=== PATIENT | female | born 1970 | race Caucasian/White ===

== ENCOUNTER 2019-06-21 01:45 | Inpatient (IN) | payer OTHER ==
--- NOTE | 2019-06-21 02:23 | PDOC ---
Attending Attestation - Resident Resident Name: Ann Garcias - ED Attending Attestation I have performed the following: I have examined & evaluated the patient, The case was reviewed & discussed with the resident, I agree w/resident's findings & plan - HPI HPI: 06/21/19 02:59 48 yo female with diffuse abdominal pain and diarrhea since returning from [place], symptoms worsening despite treatment with Fagyl - Physicial Exam PE: 06/21/19 03:00 agree with residents exam - Medical Decision Making 06/21/19 06:08 48-year-old female with abdominal cramping vomiting and diarrhea despite Flagyl after returning from [place] CT scan consistent with diarrheal illness Lipase is greater than twice normal Will admit for IV hydration and further evaluation to medical service
--- NOTE | 2019-06-21 02:32 | PDOC ---
History of Present Illness - General Chief Complaint: Pain Stated Complaint: ABD PAIN Time Seen by Provider: 06/21/19 02:22 Past History - Past Medical History Allergies/Adverse Reactions: Allergies Allergy/AdvReac Type Severity Reaction Status Date / Time No Known Allergies Allergy Verified 06/21/19 02:05 COPD: No GI Disorders: Yes - Suicide/Smoking/Psychosocial Hx Smoking History: Never smoked *Physical Exam - Vital Signs Last Vital Signs Temp Pulse Resp BP Pulse Ox 98.3 F 68 18 117/79 98 06/21/19 02:01 06/21/19 02:01 06/21/19 02:01 06/21/19 02:01 06/21/19 02:01 ED Treatment Course - LABORATORY CBC & Chemistry Diagram: 06/21/19 03:20 06/21/19 03:20 Medical Decision Making - Medical Decision Making 48yo F with PMH of gastritis, constipation presenting with abdominal pain. Patient recently returned from [place] on Tuesday. While she was there, she developed significant diarrhea for which she was treated with flagyl by a family member who is a physician. Patient developed abdominal pain thereafter and was admitted to the hospital. An imaging study and blood work showed that the patient had a "paralyzed intestine" for which she was medically managed and cleared for travel back to the [facility]. Patient presents to the ER today with pain that has worsened over the past three days that is similar to the prior abdominal pain but more severe, now rated 10/10 and described as "contractions." She reports a normal formed brown bowel movement today without blood. Endorses nausea, and one episode of NBNB vomiting prior to arrival. Had an endoscopy about two months ago which was "normal." Never had a colonoscopy. Endorses subjective fever and chills. LMP was 05/28/19. Denies history of surgeries. No chest pain or shortness of breath. PCP: Dr. Alexis Aguilar GI: Dr. Webster ROS: Constitutional: +subjective fever, +chills HEENT: no throat pain, no dysphagia Cardiovascular: no chest pain, no palpitations Respiratory: no cough, no shortness of breath Gastrointestinal: +abdominal pain, +nausea Genitourinary: no dysuria, no hematuria Musculoskeletal: no myalgia, no arthralgia Skin: no rash, no itching Neurologic: no headache, no weakness PE: General: Awake, alert, and fully oriented, in no acute distress Head: No signs of trauma Eyes: EOMI, sclera anicteric ENT: Moist mucus membranes Neck: Normal ROM, supple Lungs: Lungs clear, Normal breath sounds Cardio: Regular rhythm, S1 and S2 present Abdomen: Diffuse tenderness to palpation, most focal to LLQ. Soft, nondistended. +rebound, no guarding, no masses Extremities: Normal range of motion, Distal pulses present SKIN: Warm, Dry, normal turgor Neurologic: Cranial nerves II through XII grossly intact. Normal speech ED Courses/MDM: DDX including but not limited to diverticulitis, colitis, appendicitis, pyelonephritis, UTI, , ACS Labs, EKG, CTAP Fluids, Pepcid, Zofran, Morphine 06/21/19 02:32 EKG: rate 61, QTc 459, NSR CBC WBC 8.0 K/mm3 (4.0-10.0) 06/21/19 03:20 RBC 3.82 M/mm3 (3.60-5.2) 06/21/19 03:20 Hgb 12.0 GM/dL (10.7-15.3) 06/21/19 03:20 Hct 35.6 % (32.4-45.2) 06/21/19 03:20 MCV 93.0 fl (80-96) 06/21/19 03:20 MCH 31.4 pg (25.7-33.7) 06/21/19 03:20 MCHC 33.8 g/dl (32.0-36.0) 06/21/19 03:20 RDW 14.0 % (11.6-15.6) 06/21/19 03:20 Plt Count 349 K/MM3 (134-434) 06/21/19 03:20 MPV 7.3 fl (7.5-11.1) L 06/21/19 03:20 Absolute Neuts (auto) 6.1 K/mm3 (1.5-8.0) 06/21/19 03:20 Neutrophils % 76.1 % (42.8-82.8) 06/21/19 03:20 Lymphocytes % 13.6 % (8-40) 06/21/19 03:20 Monocytes % 6.5 % (3.8-10.2) 06/21/19 03:20 Eosinophils % 3.4 % (0-4.5) 06/21/19 03:20 Basophils % 0.4 % (0-2.0) 06/21/19 03:20 Nucleated RBC % 0 % (0-0) 06/21/19 03:20 No leukocytosis Patient no longer nauseous Abd pain improved, now rated 01/2106/21/19 04:25 CMP Sodium 140 mmol/L (136-145) 06/21/19 03:20 Potassium 4.5 mmol/L (3.5-5.1) 06/21/19 03:20 Chloride 105 mmol/L (98-107) 06/21/19 03:20 Carbon Dioxide 30 mmol/L (21-32) 06/21/19 03:20 Anion Gap 5 MMOL/L (8-16) L 06/21/19 03:20 BUN 10.7 mg/dL (7-18) 06/21/19 03:20 Creatinine 1.0 mg/dL (0.55-1.3) 06/21/19 03:20 Est GFR (CKD-EPI)AfAm 76.61 06/21/19 03:20 Est GFR (CKD-EPI)NonAf 66.10 06/21/19 03:20 Random Glucose 117 mg/dL (74-106) H 06/21/19 03:20 Lactic Acid 0.8 mmol/L (0.4-2.0) 06/21/19 03:20 Calcium 8.8 mg/dL (8.5-10.1) 06/21/19 03:20 Total Bilirubin 0.3 mg/dL (0.2-1) 06/21/19 03:20 AST 19 U/L (15-37) 06/21/19 03:20 ALT 38 U/L (13-61) 06/21/19 03:20 Alkaline Phosphatase 52 U/L (45-117) 06/21/19 03:20 Troponin I < 0.02 ng/ml (0.00-0.05) 06/21/19 03:20 Total Protein 6.8 g/dl (6.4-8.2) 06/21/19 03:20 Albumin 3.5 g/dl (3.4-5.0) 06/21/19 03:20 Lipase 847 U/L (73-393) H 06/21/19 03:20 Electrolytes unremarkable Normal BUN and Cr Normal lactate Tpn negative Lipase elevated UA negative for infection test negative Pending CTAP report 06/21/19 05:21 CT via Imaging console attendant: "FINDINGS: Lung bases are clear. The visualized cardiac chambers are normal size and configuration. A tiny left hepatic lobe cyst is noted . Normal gallbladder, pancreas, spleen, adrenal glands and kidneys. The stomach and small bowel are normal. Scattered liquid stool is noted without colonic wall thickening which could indicate a diarrheal illness. There is no aortic aneurysm. There is no significant retroperitoneal lymphadenopathy. The appendix is not mobile. The uterus and adnexal structures are notable only for a 1.4 cm left ovarian cyst. Urinary bladder is unremarkable. There is minimal pelvic free fluid. No discrete pelvic lymphadenopathy is identified. IMPRESSION: 1.4 cm left ovarian cyst and minimal pelvic free fluid Possible diarrheal illness without colonic wall thickening." Pain is worsening, now 5/ Plan for admission for abdominal pain/vomiting/diarrhea and elevated lipase 06/21/19 06:15 Discussed case with REC[facility] OF [facility]ED[facility] Venessa Lee who accepted patient for admission under Dr. Pelletier 06/21/19 06:45 *DC/Admit/Observation/Transfer Diagnosis at time of Disposition: Elevated lipase, Abdominal pain, vomiting, and diarrhea - Discharge Dispostion Condition at time of disposition: Guarded Decision to Admit order: Yes - Referrals Referrals: Alexis Aguilar [Primary Care Provider] - - Patient Instructions - Post Discharge Activity
[2019-06-21] MEDS ORDERED: FAMOTIDINE 20 MG/50 ML IVPB 20 MG/50 ML MG IVPB ONE ×4 (03:02→22:08)
[2019-06-21] MEDS ORDERED: SODIUM CHLORIDE 1,000 ML IV STA (03:02)
[2019-06-21] MEDS ORDERED: morphine CARPU-JECT 4 MG/1 ML DISP.SYRIN IVPUSH ONE (03:02)
[2019-06-21] MEDS ORDERED: ONDANSETRON 4 MG/2 ML VIAL IVPUSH ONE (03:02)
[2019-06-21] MEDS ORDERED: morphine SULFATE 4 MG/ML VIAL ONE (03:24)
[2019-06-21] MEDS ORDERED: ONDANSETRON 4 MG/2 ML VIAL ONE (03:25)
[2019-06-21 03:43] LABS: BASO % 0.4 % (0-2.0); EOS % 3.4 % (0-4.5); HEMATOCRIT 35.6 % (32.4-45.2); LYMPH % 13.6 % (8-40); MCH 31.4 pg (25.7-33.7); MCHC 33.8 g/dl (32.0-36.0); MEAN PLT VOLUME 7.3 fl (7.5-11.1); MONO % 6.5 % (3.8-10.2); NEUT % 76.1 % (42.8-82.8); PLATELET COUNT 349 K/MM3 (134-434); RBC 3.82 M/mm3 (3.60-5.2)
[2019-06-21 04:20] LABS: ALBUMIN 3.5 g/dl (3.4-5.0); BILIRUBIN,TOTAL 0.3 mg/dL (0.2-1); BLOOD UREA NITROGEN 10.7 mg/dL (7-18); CALCIUM 8.8 mg/dL (8.5-10.1); POTASSIUM 4.5 mmol/L (3.5-5.1); TOT PROT 6.8 g/dl (6.4-8.2)
[2019-06-21 04:39] LABS: URINE APPEARANCE CLEAR; URINE BILIRUBIN NEGATIVE (NEGATIVE); URINE COLOR YELLOW; URINE GLUCOSE (UA) NEGATIVE (NEGATIVE); URINE KETONE TRACE (NEGATIVE); URINE LEUK ESTERASE NEGATIVE (NEGATIVE); URINE NITRITE NEGATIVE (NEGATIVE); URINE PROTEIN NEGATIVE (NEGATIVE); URINE UROBILINOGEN 0.2 mg/dL (0.2-1.0)
[2019-06-21] MEDS ORDERED: ONDANSETRON 4 MG/2 ML VIAL IVPUSH PRN (06:50)
[2019-06-21] MEDS ORDERED: DEXTROSE 5%-0.45% SALINE 1,000 ML IV SCH (07:00)
[2019-06-21] MEDS ORDERED: morphine SULFATE 4 MG/ML VIAL IVPUSH PRN (07:03)
[2019-06-21] MEDS ORDERED: SODIUM CHLORIDE 500 ML IV STA (07:19)
--- NOTE | 2019-06-21 07:36 | HP ---
Admitting History and Physical - Primary Care Physician PCP: Alexis Aguilar - Admission Chief Complaint: abdominal pain, nausea/vomiting/diarrhea History of Present Illness: Patient is a 48 year old female with a significant past medical history of gastritis and chronic constipation. She presents to the ED with diffused abdominal pain. Patient was in [place] last week, visiting family. While there, patient states she ate many different types of food. She developed abdominal pain while in [place] and went to the hospital. While hospitalized, she was treated with an IV antibiotic and told that her appendix may be the culprit and that she possibly had a "paralyzed intestine". She did not have surgery and subsequently improved and was discharged and cleared for travel back to the . She was discharged, but her abdominal pain quickly returned. She was then prescribed Flagenese (metronidazol), simethecone and famotidine by a family member that is a physician. She took these medications without improvement. She presents to our ED with epigastric pain as well as left upper and lower quadrant abdominal pain that she describes as "crampy" associated with nausea and diarrhea. She reports two episodes of diarrhea yesterday without blood. She endorses nausea, and one episode of NBNB vomiting prior to arrival. States she had an endoscopy about two months ago which was "normal." Never had a colonoscopy. Endorses subjective fever and chills. She denies chest pain. Patient had an hypotensive episode of 76/48 in the ED. She denies any dizziness or any other malaise. She is ordered for a bolus of 500cc of normal saline. Her repeat BP prior to bolus was more stable at 92/61. History Source: Patient, Family Member Limitations to Obtaining History: No Limitations - Past Medical History ...: No - Past Surgical History Past Surgical History: Yes: None - Smoking History Smoking history: Never smoked - Alcohol/Substance Use Hx Alcohol Use: No History of Substance Use: reports: None - Social History Usual Living Arrangement: Yes: With Spouse History of Recent Travel: Yes ([place], returned on Tuesday) Home Medications - Allergies Allergies/Adverse Reactions: Allergies Allergy/AdvReac Type Severity Reaction Status Date / Time No Known Allergies Allergy Verified 06/21/19 02:05 Review of Systems - Review of Systems Constitutional: reports: Chills, Lethargy, Loss of Appetite, Malaise, Weakness Eyes: reports: No Symptoms HENT: reports: No Symptoms Neck: reports: No Symptoms Cardiovascular: reports: No Symptoms Respiratory: reports: No Symptoms Gastrointestinal: reports: Abdominal Pain (left upper and lowe quadrants), Bloating, Diarrhea, Dysphagia, Indigestion, Nausea, Vomiting Genitourinary: reports: No Symptoms Breasts: reports: No Symptoms Reported Musculoskeletal: reports: No Symptoms Integumentary: reports: No Symptoms Neurological: reports: No Symptoms Endocrine: reports: No Symptoms Hematology/Lymphatic: reports: No Symptoms Psychiatric: reports: No Symptoms Pain Intensity: 5 Physical Examination Vital Signs: Vital Signs Temperature 98.3 F 06/21/19 02:01 Pulse Rate 56 L 06/21/19 07:29 Respiratory Rate 17 06/21/19 07:29 Blood Pressure 92/71 06/21/19 07:29 O2 Sat by Pulse Oximetry (%) 99 06/21/19 07:29 Constitutional: Yes: Calm Eyes: Yes: WNL HENT: Yes: WNL, Atraumatic Neck: Yes: WNL, Supple, Trachea Midline Cardiovascular: Yes: Regular Rate and Rhythm Gastrointestinal: Yes: Soft, Hypoactive Bowel Sounds, Tenderness, Vomiting Musculoskeletal: Yes: WNL Extremities: Yes: WNL Edema: No Integumentary: Yes: WNL Wound/Incision: Yes: Clean/Dry Neurological: Yes: WNL, Alert, Oriented ...Motor Strength: WNL Psychiatric: Yes: WNL, Alert, Oriented Labs: CBC, BMP 06/21/19 03:20 06/21/19 03:20 Problem List - Problems (1) Abdominal pain, vomiting, and diarrhea Assessment/Plan: Abdominal pain. possibly secondary to acute diverticulitis, colitis, appendicitis, pyelonephritis or ACS Awaiting abdominal pelvic CTAP will order - Keep NPO - hydrate with NS. - protonix iv - stool cultures, blood cultures, urine cultures - trend troponins - stool for c diff - anti emetics Code(s): R10.9 - UNSPECIFIED ABDOMINAL PAIN; R11.10 - VOMITING, UNSPECIFIED; R19.7 - DIARRHEA, UNSPECIFIED (2) Elevated lipase Assessment/Plan: lipase elevated at 847 keep npo GI consulted Code(s): R74.8 - ABNORMAL LEVELS OF OTHER SERUM ENZYMES (3) Hypotension Assessment/Plan: bp dropped to 70/40s. IVF fluid bolus ordered. monitor BP q 2-4 until normalizes. continue if aggressive ivf hydration Code(s): I95.9 - HYPOTENSION, UNSPECIFIED (4) Hypotension due to hypovolemia Code(s): I95.89 - OTHER HYPOTENSION; E86.1 - HYPOVOLEMIA (5) Prophylactic measure Assessment/Plan: fen d5 1/2 ns @ 100 cc/hr monitor electrolytes and replete NPO prophy SCDs initiate heparin if LOS > 48 hrs full code Code(s): Z29.9 - ENCOUNTER FOR PROPHYLACTIC MEASURES, UNSPECIFIED Visit type - Emergency Visit Emergency Visit: Yes ED Registration Date: 06/21/19 Care time: The patient presented to the Emergency Department on the above date and was hospitalized for further evaluation of their emergent condition. - New Patient This patient is new to me today: Yes Date on this admission: 06/21/19 - Critical Care Critical Care patient: No
[2019-06-21] MEDS ORDERED: PANTOPRAZOLE SODIUM 40 MG VIAL IVPUSH ONE (08:30)
[2019-06-21] MEDS ORDERED: PANTOPRAZOLE SODIUM 40 MG VIAL ONE (09:42)
--- NOTE | 2019-06-21 12:39 | PN ---
Progress Note, Physician Chief Complaint: patient seen and examined still has left sided abdominal pain no nausea - Current Medication List Current Medications: Active Medications Dextrose/Sodium Chloride (D5-1/2ns -) 1,000 mls @ 125 mls/hr IV ASDIR CIPRIANO Last Admin: 06/21/19 07:08 Dose: 125 mls/hr Famotidine/Sodium Chloride (Pepcid 20 Mg Premixed Ivpb -) 20 mg in 50 mls @ 100 mls/hr IVPB BID CIPRIANO Morphine Sulfate (Morphine Sulfate) 4 mg IVPUSH Q6H PRN PRN Reason: PAIN LEVEL 7 - 10 Ondansetron HCl (Zofran Injection) 4 mg IVPUSH Q6H PRN PRN Reason: NAUSEA AND/OR VOMITING - Objective Vital Signs: Vital Signs Temperature 97.9 F 06/21/19 08:39 Pulse Rate 61 06/21/19 08:39 Respiratory Rate 17 06/21/19 08:39 Blood Pressure 99/66 06/21/19 08:39 O2 Sat by Pulse Oximetry (%) 99 06/21/19 08:39 Constitutional: Yes: Calm Cardiovascular: Yes: Regular Rate and Rhythm, S1, S2 Respiratory: Yes: CTA Bilaterally Gastrointestinal: Yes: Tenderness (left lower quadrant) Edema: No Neurological: Yes: Alert, Oriented Labs: CBC, BMP 06/21/19 03:20 06/21/19 03:20 Problem List - Problems (1) Elevated lipase Assessment/Plan: trend lipase ivf pain control gi consult Code(s): R74.8 - ABNORMAL LEVELS OF OTHER SERUM ENZYMES (2) Abdominal pain, vomiting, and diarrhea Assessment/Plan: elevated lipase NPO ivf GI eval no more diarrhea or vomitting Code(s): R10.9 - UNSPECIFIED ABDOMINAL PAIN; R11.10 - VOMITING, UNSPECIFIED; R19.7 - DIARRHEA, UNSPECIFIED (3) Hypotension Assessment/Plan: ivf Code(s): I95.9 - HYPOTENSION, UNSPECIFIED (4) Free fluid in pelvis Assessment/Plan: obgyn eval for ct scan findings Code(s): R18.8 - OTHER ASCITES
--- NOTE | 2019-06-21 13:49 | EKG ---
Test Reason : Blood Pressure : / mmHG Vent. Rate : 061 BPM Atrial Rate : 061 BPM P-R Int : 122 ms QRS Dur : 080 ms QT Int : 456 ms P-R-T Axes : 024 021 035 degrees QTc Int : 459 ms NORMAL SINUS RHYTHM NORMAL ECG NO PREVIOUS ECGS AVAILABLE Confirmed by NAS SLATER MD ([id number]) on 06/21/2019 1:49:11 PM Referred By: Confirmed By:NAS SLATER MD
--- NOTE | 2019-06-21 14:34 | PN ---
Progress Note (short form) - Note Progress Note: patient seen and examiend still having left upper and lower quadrant pain on exam spoke to Dr barry rivera send stool studies start iv rocpehin and NS @ 100cc/hr NPO for now Problem List - Problems (1) Elevated lipase Code(s): R74.8 - ABNORMAL LEVELS OF OTHER SERUM ENZYMES (2) Abdominal pain, vomiting, and diarrhea Code(s): R10.9 - UNSPECIFIED ABDOMINAL PAIN; R11.10 - VOMITING, UNSPECIFIED; R19.7 - DIARRHEA, UNSPECIFIED (3) Hypotension Code(s): I95.9 - HYPOTENSION, UNSPECIFIED (4) Free fluid in pelvis Code(s): R18.8 - OTHER ASCITES
[2019-06-21] MEDS ORDERED: CEFTRIAXONE 1 GM/50 ML BAG ONE (14:53)
[2019-06-21] MEDS: CEFTRIAXONE 1 GM in DEXTROSE 5%-WATER - 50 ML IVPB SCH (15:01)
[2019-06-21] MEDS: SODIUM CHLORIDE 1,000 ML IV SCH (15:01)
[2019-06-21] MEDS: FAMOTIDINE 20 MG/50 ML IVPB 20 MG/50 ML MG IVPB SCH ×2 (15:02→22:12)
[2019-06-22 07:32] LABS: BASO % 0.7 % (0-2.0); EOS % 8.3 % (0-4.5); HEMATOCRIT 30.1 % (32.4-45.2); HEMOGLOBIN 10.4 GM/dL (10.7-15.3); LYMPH % 44.4 % (8-40); MCH 31.9 pg (25.7-33.7); MCHC 34.4 g/dl (32.0-36.0); MEAN CELL VOLUME 92.6 fl (80-96); MEAN PLT VOLUME 7.2 fl (7.5-11.1); MONO % 11.2 % (3.8-10.2); NEUT % 35.4 % (42.8-82.8); PLATELET COUNT 253 K/MM3 (134-434); RBC 3.25 M/mm3 (3.60-5.2); RDW 13.9 % (11.6-15.6); WHITE BLOOD COUNT 3.6 K/mm3 (4.0-10.0)
[2019-06-22 07:44] LABS: ALBUMIN 2.7 g/dl (3.4-5.0); BILIRUBIN,TOTAL 0.5 mg/dL (0.2-1); BLOOD UREA NITROGEN 6.7 mg/dL (7-18); CALCIUM 7.7 mg/dL (8.5-10.1); CREATININE 0.6 mg/dL (0.55-1.3); POTASSIUM 4.1 mmol/L (3.5-5.1); TOT PROT 5.4 g/dl (6.4-8.2)
--- NOTE | 2019-06-22 08:07 | CON.GI ---
Consult Consult Specialty:: GI Referred by:: Venessa Lee NP Reason for Consultation:: Abdominal Pain, Colitis - History of Present Illness Chief Complaint: Abdominal Pain History of Present Illness: Patient is a 48 y/o female with that presented to ER with complaints of lower abdominal pain for 2 weeks. Pain is described as sharp/cramping, non-radiating , exacerbated with eating. When abdominal pain started she developed NB diarrhea for 2 days with night awakening. The night before presenting to ER she began experiencing NBNB vomiting x 2 episodes. Her symtpoms where accompanied with fever, no chills. She states recently returning from a trip to [place] and shortly after returning her symptoms developed. - History Source History Provided By: Patient Limitations to Obtaining History: No Limitations - Past Medical History ...LMP: 05/28/19 ...: No - Past Surgical History Past Surgical History: Yes: None - Alcohol/Substance Use Hx Alcohol Use: No History of Substance Use: reports: None - Smoking History Smoking history: Never smoked Have you smoked in the past 12 months: No - Social History Usual Living Arrangement: With Spouse ADL: Independent History of Recent Travel: Yes ([place], returned on Tuesday) Home Medications - Allergies Allergies/Adverse Reactions: Allergies Allergy/AdvReac Type Severity Reaction Status Date / Time No Known Allergies Allergy Verified 06/21/19 02:05 - Home Medications Home Medications: Ambulatory Orders NK [No Known Home Medication] 06/21/19 Review of Systems - Review of Systems Constitutional: reports: Loss of Appetite Eyes: reports: No Symptoms HENT: reports: No Symptoms Neck: reports: No Symptoms Cardiovascular: reports: No Symptoms Respiratory: reports: No Symptoms Gastrointestinal: reports: Abdominal Pain, Diarrhea, Nausea, Vomiting Genitourinary: reports: No Symptoms Breasts: reports: No Symptoms Reported Musculoskeletal: reports: No Symptoms Integumentary: reports: No Symptoms Neurological: reports: No Symptoms Endocrine: reports: No Symptoms Hematology/Lymphatic: reports: No Symptoms Psychiatric: reports: No Symptoms Physical Exam-GI Vital Signs: Vital Signs Temperature 98.6 F 06/22/19 05:00 Pulse Rate 59 L 06/22/19 05:00 Respiratory Rate 18 06/21/19 23:00 Blood Pressure 111/62 06/22/19 05:00 O2 Sat by Pulse Oximetry (%) 98 06/21/19 19:48 Constitutional: Yes: No Distress, Calm Eyes: Yes: Conjunctiva Clear HENT: Yes: Atraumatic Cardiovascular: Yes: Regular Rate and Rhythm Respiratory: Yes: Regular, CTA Bilaterally Gastrointestinal Inspection: Yes: WNL. No: Ascites, Distention, Hernia, Scars, Other ...Auscultate: Yes: Normoactive Bowel Sounds. No: Hyperactive Bowel Sounds, Hypoactive Bowel Sounds, No Bowel Sounds, Other ...Palpate: Yes: Soft, Tenderness (diffuse). No: Firm/Rigid, Guarding, Hepatomegaly, Mass, Pulsatile Mass, Splenomegaly, Tenderness, Epigastium, Tenderness, Rebound, Other ...Percussion: Yes: Tympanitic. No: Dullness, Fluid Wave, Other Neurological: Yes: Alert, Oriented Psychiatric: Yes: Alert, Oriented Labs: CBC, BMP 06/22/19 06:42 06/22/19 06:42 Active Medications Generic Name Dose Route Start Last Admin Trade Name Freq PRN Reason Stop Dose Admin Famotidine/Sodium Chloride 20 mg in 50 mls @ 100 mls/hr 06/21/19 15:00 22:12 Pepcid 20 Mg Premixed Ivpb - IVPB 100 mls/hr BID CIPRIANO Administration Sodium Chloride 1,000 mls @ 125 mls/hr 06/21/19 14:15 06/21/19 15:01 Normal Saline - IV 125 mls/hr ASDIR CIPRIANO Administration Ceftriaxone Sodium 1 gm/ 50 mls @ 100 mls/hr 06/21/19 14:30 06/21/19 15:01 Dextrose IVPB 100 mls/hr DAILY CIPRIANO Administration Protocol Metronidazole 500 mg in 100 mls @ 100 mls/hr 06/22/19 02:00 06/22/19 01:34 Flagyl 500mg Premixed Ivpb - IVPB 100 mls/hr Q8H-IV CIPRIANO Administration Morphine Sulfate 4 mg 06/21/19 07:03 Morphine Sulfate IVPUSH Q6H PRN PAIN LEVEL 7 - 10 Ondansetron HCl 4 mg 06/21/19 06:50 Zofran Injection IVPUSH Q6H PRN NAUSEA AND/OR VOMITING Pantoprazole Sodium 40 mg 06/22/19 10:00 Protonix Iv IVPUSH DAILY CIPRIANO Imaging - Results Cat Scan: Report Reviewed Problem List - Problems (1) Abdominal pain, vomiting, and diarrhea Assessment/Plan: >IV hydration >Ceftriaxone and Metronidazole >Famotidine >Zofran prn for nausea >stool OB, O&P, calpoprectin pending Code(s): R10.9 - UNSPECIFIED ABDOMINAL PAIN; R11.10 - VOMITING, UNSPECIFIED; R19.7 - DIARRHEA, UNSPECIFIED
[2019-06-22] MEDS ORDERED: cefTRIAXone SODIUM 1 GM VIAL ONE (09:42)
[2019-06-22] MEDS ORDERED: DEXTROSE 5%-WATER - 50 ML IVPB ONE (09:42)
[2019-06-22] MEDS: PANTOPRAZOLE SODIUM 40 MG VIAL IVPUSH SCH (10:00)
[2019-06-22] MEDS: SODIUM CHLORIDE 1,000 ML IV SCH (10:00)
[2019-06-22] MEDS: FAMOTIDINE 20 MG/50 ML IVPB 20 MG/50 ML MG IVPB SCH ×2 (10:01→21:54)
[2019-06-22] MEDS: CEFTRIAXONE 1 GM in DEXTROSE 5%-WATER - 50 ML IVPB SCH (10:01)
--- NOTE | 2019-06-22 14:25 | DS ---
Physical Examination Vital Signs: Vital Signs Temperature 98.6 F 06/22/19 05:00 Pulse Rate 57 L 06/22/19 12:00 Respiratory Rate 18 06/22/19 12:00 Blood Pressure 100/50 L 06/22/19 12:00 O2 Sat by Pulse Oximetry (%) 98 06/21/19 19:48 Constitutional: Yes: Calm Cardiovascular: Yes: Regular Rate and Rhythm, S1, S2 Respiratory: Yes: CTA Bilaterally Gastrointestinal: Yes: Soft, Other (tenderness in left lower quadrant but much improved) Edema: No Neurological: Yes: Alert Labs: CBC, BMP 06/22/19 06:42 06/22/19 06:42 Discharge Summary Reason For Visit: COMBINED ABDOMINAL PAIN,VOMITING,DIARRHEA Current Active Problems Abdominal pain, vomiting, and diarrhea (Acute) Elevated lipase (Acute) Free fluid in pelvis (Acute) Hypotension (Acute) Hypotension due to hypovolemia (Acute) Prophylactic measure (Acute) Hospital Course: patient admitted with abdominal pain and diarrhea ct sca ndone did not show acute pathology started on iv abx and kept NPO now ready to go home Condition: Guarded - Instructions Diet, Activity, Other Instructions: ciprofloxacin 500mg po bid for 7 days flagyl 250mg po tid for 10 days low fibre lactose free diet Disposition: HOME - Home Medications Comprehensive Discharge Medication List: Ambulatory Orders NK [No Known Home Medication] 06/21/19
--- NOTE | 2019-06-22 14:28 | PN ---
Progress Note (short form) - Note Progress Note: plan to give low fibre lactose free diet today in [place] and then dc home in AM on oral abx Problem List - Problems (1) Elevated lipase Code(s): R74.8 - ABNORMAL LEVELS OF OTHER SERUM ENZYMES (2) Abdominal pain, vomiting, and diarrhea Code(s): R10.9 - UNSPECIFIED ABDOMINAL PAIN; R11.10 - VOMITING, UNSPECIFIED; R19.7 - DIARRHEA, UNSPECIFIED (3) Hypotension Code(s): I95.9 - HYPOTENSION, UNSPECIFIED (4) Free fluid in pelvis Code(s): R18.8 - OTHER ASCITES
[2019-06-22] MEDS ORDERED: INSULIN (NOVOLOG) ASPART 100 UNITS/ML 10ML VIAL ONE (21:49)
[2019-06-23 06:07] VITALS: BP 104/64; PULSE 61; TEMP 98.7
[2019-06-23] MEDS ORDERED: ACETAMINOPHEN 325 MG TABLET (FP) PO PRN (06:07)
[2019-06-23] MEDS ORDERED: cefTRIAXone SODIUM 1 GM VIAL ONE (09:24)
[2019-06-23] MEDS ORDERED: DEXTROSE 5%-WATER - 50 ML IVPB ONE (09:24)
[2019-06-23] MEDS: FAMOTIDINE 20 MG/50 ML IVPB 20 MG/50 ML MG IVPB SCH (09:36)
[2019-06-23] MEDS: PANTOPRAZOLE SODIUM 40 MG VIAL IVPUSH SCH (09:37)
[2019-06-23] MEDS: CEFTRIAXONE 1 GM in DEXTROSE 5%-WATER - 50 ML IVPB SCH (09:37)
[2019-06-23 12:15] VITALS: BMI 27.8
== END 2019-06-23 13:35 | disposition home or self-care (01) | DRG 249 ==
LOC: JER 01:45 → MERGE 06:24 → JERBED 06:24 → J6S 22:37
PROVIDERS: ADMIT Family Medicine; ATTEND Family Medicine
DX: K52.9 Noninfective gastroenteritis and colitis, unspecified (principal); R10.9 Unspecified abdominal pain; I95.9 Hypotension, unspecified; R11.10 Vomiting, unspecified; R74.8 Abnormal levels of other serum enzymes; R18.8 Other ascites
CPT/HCPCS: 36415; 74177-TC; 80053; 81003; 82150; 83036; 83605; 83690; 84484; 84703; 85025; 87040; 87086; 93005; 93010; 99285-25; J7030

== ENCOUNTER 2021-10-24 11:42 | Emergency (ER) | payer OTHER ==
[2021-10-24 12:01] VITALS: BMI 23.6
[2021-10-24] MEDS ORDERED: ACETAMINOPHEN 1000 MG/100 ML BAG IVPB ONE (12:33)
[2021-10-24] MEDS ORDERED: SODIUM CHLORIDE 0.9% 500 ML INFUS.BAG IV ONE (12:33)
[2021-10-24] MEDS ORDERED: METOCLOPRAMIDE HCL INJECTION 10 MG/2 ML VIAL IVPUSH ONE (12:38)
[2021-10-24] MEDS ORDERED: MECLIZINE HCL 25 MG TABLET (FP) PO ONE (12:43)
[2021-10-24 13:08] LABS: BASO % 0.9 % (0-2.0); EOS % 4.8 % (0-4.5); HEMATOCRIT 37.5 % (32.4-45.2); HEMOGLOBIN 12.9 GM/dL (10.7-15.3); LYMPH % 32.6 % (8-40); MCH 32.7 pg (25.7-33.7); MCHC 34.5 g/dl (32.0-36.0); MEAN CELL VOLUME 94.7 fl (80-96); MEAN PLT VOLUME 7.4 fl (7.5-11.1); MONO % 10.2 % (3.8-10.2); NEUT % 51.5 % (42.8-82.8); PLATELET COUNT 234 10^3/uL (134-434); RBC 3.96 M/mm3 (3.60-5.2); RDW 12.8 % (11.6-15.6); WHITE BLOOD COUNT 3.9 K/mm3 (4.0-10.0)
[2021-10-24] MEDS ORDERED: METOCLOPRAMIDE HCL INJECTION 10 MG/2 ML VIAL ONE (13:10)
[2021-10-24] MEDS ORDERED: MECLIZINE HCL 25 MG TABLET (FP) ONE (13:10)
[2021-10-24] MEDS ORDERED: ACETAMINOPHEN INJECTION 100 ML IVPB ONE (13:10)
[2021-10-24 13:39] LABS: CO2 31 mmol/L (21-32); GLUCOSE,RANDOM 102 mg/dL (74-106)
[2021-10-24 13:40] LABS: CALCIUM 9.3 mg/dL (8.5-10.1)
[2021-10-24 13:41] LABS: BLOOD UREA NITROGEN 11.1 mg/dL (7-18)
[2021-10-24 13:43] LABS: CHOLESTEROL 180 mg/dL (50-200); CREATININE 0.7 mg/dL (0.55-1.3); LDL CHOLESTEROL (ONLY SJRH) 69 mg/dL (5-100); SGOT/AST 67 U/L (15-37); SGPT/ALT 35 U/L (13-61); TRIGLYCERIDES 36 mg/dL (0-150)
[2021-10-24 13:45] LABS: BILIRUBIN,TOTAL 0.5 mg/dL (0.2-1); TOT PROT 7.2 g/dl (6.4-8.2)
[2021-10-24 13:46] LABS: ALK PHOS 48 U/L (45-117); HDL CHOLESTEROL 94 mg/dL (40-60)
[2021-10-24 13:52] LABS: ANION GAP 5 MMOL/L (8-16); CHLORIDE 105 mmol/L (98-107); SODIUM 140 mmol/L (136-145)
[2021-10-24 14:07] LABS: INR 1.06 (0.83-1.09); PROTHROMBIN TIME (PATIENT) 11.9 SEC (9.7-13.0)
[2021-10-24 14:09] LABS: ACTIVATED PTT 31.8 SECONDS (25.2-36.5)
[2021-10-24] MEDS ORDERED: diazePAM CARPU-JECT 10 MG/2 ML DISP.SYRIN IVPUSH ONE (15:00)
[2021-10-24] MEDS ORDERED: diazePAM CARPU-JECT 10 MG/2 ML DISP.SYRIN ONE (15:55)
[2021-10-25] MEDS: DEXTROSE 5%-0.45% SALINE 1,000 ML IV SCH ×2 (01:00→21:17)
[2021-10-25] MEDS ORDERED: ENOXAPARIN NA (PORCINE) 40 MG/0.4 ML DISP.SYRIN SQ ONE (09:29)
[2021-10-25] MEDS: ENOXAPARIN NA (PORCINE) 40 MG/0.4 ML DISP.SYRIN SQ SCH (09:35)
[2021-10-25 10:18] LABS: BASO % 0.6 % (0-2.0); EOS % 8.7 % (0-4.5); HEMATOCRIT 33.5 % (32.4-45.2); HEMOGLOBIN 11.4 GM/dL (10.7-15.3); LYMPH % 44.4 % (8-40); MCH 32.5 pg (25.7-33.7); MCHC 34.1 g/dl (32.0-36.0); MEAN CELL VOLUME 95.3 fl (80-96); MEAN PLT VOLUME 7.5 fl (7.5-11.1); MONO % 12.1 % (3.8-10.2); NEUT % 34.2 % (42.8-82.8); PLATELET COUNT 191 10^3/uL (134-434); RBC 3.52 M/mm3 (3.60-5.2); WHITE BLOOD COUNT 2.7 K/mm3 (4.0-10.0)
[2021-10-25 10:40] LABS: BLOOD UREA NITROGEN 11.3 mg/dL (7-18)
[2021-10-25 10:43] LABS: CREATININE 0.7 mg/dL (0.55-1.3)
[2021-10-25 10:45] LABS: BILIRUBIN,TOTAL 0.4 mg/dL (0.2-1); TOT PROT 5.9 g/dl (6.4-8.2)
[2021-10-25 11:25] LABS: ALBUMIN 2.8 g/dl (3.4-5.0); CALCIUM 7.8 mg/dL (8.5-10.1)
[2021-10-25] MEDS ORDERED: MECLIZINE HCL 25 MG TABLET (FP) ONE ×2 (11:32→21:05)
[2021-10-25] MEDS: MECLIZINE HCL 25 MG TABLET (FP) PO PRN ×2 (11:35→21:17)
[2021-10-26] MEDS ORDERED: ENOXAPARIN NA (PORCINE) 40 MG/0.4 ML DISP.SYRIN SQ ONE (10:01)
[2021-10-26] MEDS: ENOXAPARIN NA (PORCINE) 40 MG/0.4 ML DISP.SYRIN SQ SCH (10:05)
[2021-10-26 16:54] VITALS: BP 100/59; PULSE 59; TEMP 97.9
== END 2021-10-26 17:10 | disposition home or self-care (01) ==
LOC: JER 11:42 → JERBED 15:49 → INTOOBSV 15:49 → UNDOADMOB 15:49 → JERBED 10-27 08:13
DX: R42 Dizziness and giddiness (principal)
CPT/HCPCS: 36415; 70450-TC; 70551-TC; 80053; 80061; 82550; 82553; 83036; 84484; 85025; 85610; 85730; 86850; 86900; 86901; 93005; 93010; 93880-TC; 99285-25; C9803; J0131; U0003; U0005